=== PATIENT | female | born 1990 | race Caucasian/White ===

== ENCOUNTER 2016-07-02 07:36 | Day surgery (SDC) | payer OTHER ==
[~2016-07-02] VITALS: Ht 152.4 cm; Wt 80.0 kg
[~2016-07-02 07:36] MED LIST: MEGA MULTIVITA1 EAC2 PO
[2016-07-02] MEDS ORDERED: HYDROCODON-ACE1 EAC7 PO (10:44)
[2016-07-02] MEDS ORDERED: IBUPROFEN800 MG PO (10:44)
[2016-07-02 11:43] VITALS: BP 110/59
[2016-07-02 12:45] VITALS: BP 106/59
[2016-07-02 13:34] VITALS: BP 115/56
== END 2016-07-02 13:56 | disposition home or self-care (01) ==
LOC: SDC 07:36
PROC: 0UT54ZZ Resection of Right Fallopian Tube, Percutaneous Endoscopic Approach (ICD-10-PCS; principal; 2016-07-02)
DX: N70.11 Chronic salpingitis (principal); N80.3 Endometriosis of pelvic peritoneum; G71.11 Myotonic muscular dystrophy; E28.2 Polycystic ovarian syndrome; Z88.8 Allergy status to other drugs, medicaments and biological substances
CPT/HCPCS: 88305; J0690; J1100; J1885; J2250; J2405; J2710; J3010

== ENCOUNTER 2017-01-12 14:16 | Emergency (ER) | payer OTHER ==
[~2017-01-12] VITALS: Ht 154.9 cm; Wt 78.9 kg
[~2017-01-12 14:16] MED LIST changes: +HYDROCODON-ACE1 EAC7 PO; +IBUPROFEN800 MG PO
[2017-01-12 14:57] LABS: HEMATOCRIT 41.5 % (36.0-46.0); MCH 27.5 PG (29.0-34.0); MCHC 31.3 G/DL (30.0-36.0); MCV 87.7 FL (83-99); MEAN PLAT.VOLUME 11.2 uM^3 (9.5-12.4); PLATELET COUNT 295 K/uL (156-360); RBC DIS.WIDTH-CV 15.9 % (11.8-14.6); RBC DIS.WIDTH-SD 51.6 % (39-53); RED BLOOD COUNT 4.73 M/uL (3.80-5.20); WHITE BLOOD COUNT 8.8 K/uL (4.1-10.2)
[2017-01-12 15:09] LABS: CHLORIDE 112 mEq/L (99-109); POTASSIUM 3.8 mEq/L (3.7-5.4); SODIUM 147 mEq/L (136-147)
[2017-01-12 15:12] LABS: GLUCOSE 103 mg/dL (70-99)
[2017-01-12 15:13] LABS: ANION GAP 14 MEQ/L (2-14)
[2017-01-12 15:14] LABS: TOTAL BILIRUBIN 0.6 mg/dL (0.0-1.0)
[2017-01-12 15:15] LABS: ALKALINE PHOSPHATASE 140 IU/L (3-129); GFR ESTIMATE (CALCULATED) > 59 mL/min/
[2017-01-12 15:16] LABS: UREA NITROGEN (BUN) 4 mg/dL (9-23)
[2017-01-12 15:25] LABS: QUANTITATIVE HCG < 4.0 MIU/ML
[2017-01-12 16:35] LABS: COLOR BLOODY ((YELLOW)); SPECIFIC GRAVITY 1.011 (1.000-1.030)
[2017-01-12 16:36] LABS: ADD MIUA? YES; BILIRUBIN NEGATIVE; BLOOD LARGE; GLUCOSE (STRIP) NEGATIVE; KETONES NEGATIVE; LEUKOCYTES SMALL; NITRITE NEGATIVE; PH, URINE 8.5 (5-8); PROTEIN (STRIP) TRACE; UROBILINOGEN 0.2 MG/DL (0.2-1.0)
[2017-01-12 17:04] LABS: RED BLOOD CELLS TNTC /HPF (0-5)
[2017-01-12 17:05] LABS: BACTERIA RARE /HPF; EPITHELIAL CELLS RARE /HPF; MUCUS RARE /LPF; UCUL ADDED? YES
[2017-01-12] MEDS ORDERED: ULTRAM50 MG PO (21:17)
[2017-01-12] MEDS ORDERED: KEFLEX500 MG PO (21:17)
[2017-01-12] MEDS ORDERED: KEFLEX250 MG/5 M PO (21:24)
[2017-01-12 21:42] VITALS: BP 112/63
== END 2017-01-12 21:44 | disposition home or self-care (01) ==
LOC: EME 14:16
DX: N39.0 Urinary tract infection, site not specified (principal); R10.30 Lower abdominal pain, unspecified; Z88.8 Allergy status to other drugs, medicaments and biological substances
CPT/HCPCS: 76856; 80053; 81003; 84702; 85027; 87086; 93975; 99281; 99285; J0696; J1630; J1885; J7030